=== PATIENT | female | born 1990 | race Caucasian/White ===

== ENCOUNTER 2023-12-28 00:36 | Emergency (ER) | payer OTHER, SELFPAY ==
[2023-12-28 00:41] VITALS: BP 151/66; PULSE 99; RESP 20; TEMP 37.1; O2SAT 99; BMI 30.1
--- NOTE | 2023-12-28 01:08 | ED.PREGNANC1 ---
HPI - General Chief complaint: Vaginal Bleeding Stated complaint: 20 WEEKS < BLEEDING Time Seen by Provider: 12/28/23 00:45 Source: patient Mode of arrival: walk-in Limitations: no limitations History of Present Illness HPI Narrative: 18 weeks . [id number]. States bleeding heavily tonight. Denies family history of miscarriages. No abdominal cramping. No light headiness. No urinary symptoms MD Complaint: Reports vaginal bleeding Related Data Home Medications Medication Instructions Recorded Confirmed aspirin 81 mg capsule 81 mg PO DAILY 12/28/23 12/28/23 methimazole 5 mg tablet 5 mg PO DAILY 12/28/23 12/28/23 ondansetron 8 mg disintegrating 4 mg PO Q8H 12/28/23 12/28/23 tablet Allergies Allergy/AdvReac Type Severity Reaction Status Date / Time No Known Drug Allergies Allergy Verified 12/28/23 00:46 Review of Systems ROS Status of ROS 10 or more systems reviewed and unremarkable except as noted in history and below [facility], [facility] PFS Social History Smoking status: Never smoker Exam Constitutional Vital Signs, click to edit/add: Last Vital Signs Temp 98.7 F 12/28/23 00:41 Pulse 100 H 12/28/23 01:44 Resp 18 12/28/23 01:44 BP 129/81 12/28/23 01:44 Pulse Ox 100 12/28/23 01:44 O2 Del Method Room Air 12/28/23 00:41 Common normals: no apparent distress, average body habitus, oriented x3, no limitations, healthy appearing, alert and well nourished [facility] Common normals: normocephalic and head/scalp atraumatic Eye Common normals: PERRL, EOMs intact bilaterally and conjunctivae normal Respiratory Common normals: normal respiratory effort, no retractions and no use of accessory muscles Cardio Common normals: regular rate, regular rhythm, S1 normal heart sound and S2 normal heart sound GI Common normals: Normal to inspection, nondistended, normoactive bowel sounds present, soft to palpation and non-tender Extremity Common normals: normal to inspection and full ROM Neuro Common normals: oriented x3, CN's II-XII intact bilaterally, moves all extremities and no focal motor deficits Psych Appearance: grossly normal Course Vital Signs Vital signs: Vital Signs Temperature 98.7 F 12/28/23 00:41 Pulse Rate 99 H 12/28/23 00:41 Respiratory Rate 20 12/28/23 00:41 Blood Pressure 151/66 H 12/28/23 00:41 Pulse Oximetry 99 12/28/23 00:41 Oxygen Delivery Method Room Air 12/28/23 00:41 Temperature 98.7 F 12/28/23 00:41 Pulse Rate 100 H 12/28/23 01:44 Respiratory Rate 18 12/28/23 01:44 Blood Pressure 129/81 12/28/23 01:44 Pulse Oximetry 100 12/28/23 01:44 Oxygen Delivery Method Room Air 12/28/23 00:41 MDM - OB/Uterine Contractions MDM Narrative Medical decision making narrative: patient is [id number] 18 weeks who presents with vaginal bleeding. Her quant is positive but appears low for 18 weeks. H/H WNL. pelvic exam with small amount of blood in the vault. No adnexa or cervical tenderness. Patient describes past ultrasound that demonstrated IUP. patient informed of possible miscarriage. will have her return for ultrasound as one is not available at 2:00AM FHT [id number] Discussed with Nurse practitioner Taras who would like patient to receive Rho injection which was ordered and given Lab Data Labs: Lab Results 12/28/23 12/28/23 Range/Units 00:50 01:10 WBC 8.9 (4.0-11.0) 10^3/uL RBC 4.21 (4.20-5.40) 10^6/uL Hgb 12.9 (12.0-16.0) g/dL Hct 37.8 (36.0-48.0) % MCV 89.8 (81.0-99.0) fL MCH 30.6 (26.7-34.0) pg MCHC 34.1 (29.9-35.2) g/dL RDW 12.2 (11.0-15.0) % Plt Count 233 (150-450) 10^3/uL MPV 11.4 (9.5-13.5) fL Neut % (Auto) 55.6 (43.0-75.0) % Lymph % (Auto) 39.0 (20.5-60.0) % [place] % (Auto) 4.9 (1.7-12.0) % Eos % (Auto) 0.0 L (0.9-7.0) % Baso % (Auto) 0.2 (0.2-2.0) % Neut # (Auto) 5.0 (1.4-6.5) 10^3/uL Lymph # (Auto) 3.5 (1.2-3.8) 10^3/uL [place] # (Auto) 0.4 (0.3-0.8) 10^3/uL Eos # (Auto) 0.0 (0.0-0.7) 10^3/uL Baso # (Auto) 0.0 (0.0-0.1) 10^3/uL Abs Immat Gran (auto) 0.03 (0.00-0.03) 10^3/uL Imm/Tot Granulo (auto) 0.3 (0.0-0.5) % Sodium 140 (136-145) mmol/L Potassium 3.4 L (3.5-5.1) mmol/L Chloride 104 (98-107) mmol/L Carbon Dioxide 26.3 (21.0-32.0) mmol/L Anion Gap 13.1 BUN 12.0 (7.0-18.0) mg/dL Creatinine 0.66 (0.55-1.02) mg/dL Est GFR ( Amer) >60 (>=60) Est GFR (Non-Af Amer) >60 (>=60) BUN/Creatinine Ratio 18.2 Glucose 90 (74-106) mg/dL Calcium 9.0 (8.5-10.1) mg/dL HCG, Quant 14676 mIU/mL Urine Color Lt. red (YELLOW) Urine Clarity Clear (CLEAR) Urine pH 6.0 (5.0-9.0) Ur Specific [place] 1.020 (1.005-1.025) Urine Protein Trace (NEG/TRACE) mg/dL Urine Glucose (UA) Negative (NEGATIVE) mg/dL Urine Ketones Negative (NEGATIVE) mg/dL Urine Occult Blood Large A (NEGATIVE) Urine Nitrite Negative (NEGATIVE) Urine Bilirubin Negative (NEGATIVE) Urine Urobilinogen 0.2 (0.2-1.0) EU/dL Ur Leukocyte Esterase Negative (NEGATIVE) Urine RBC 50-75 A (0-2) #/HPF Urine WBC None seen (NONE SEEN) #/HPF Ur Squamous Epith Cells Rare (NONE/RARE) #/LPF Urine Crystals None seen (None Seen) #/HPF Urine Bacteria Trace A (NONE SEEN) #/HPF Urine Casts None seen (NONE SEEN) #/LPF Urine Mucus None seen (NONE SEEN) Ur Culture Indicated? No Discharge Plan Discharge Chief Complaint: Vaginal Bleeding Clinical Impression: Threatened Patient Disposition: Home, Self-Care Prescriptions / Home Meds: No Action aspirin 81 mg capsule 81 mg PO DAILY ondansetron 8 mg tablet,disintegrating 4 mg PO Q8H methimazole 5 mg tablet 5 mg PO DAILY Rx Instructions: 4x a week. Instructions: Threatened Miscarriage (ED) Additional Instructions: return later today for ultrasound or you can see your academic administrator Stand Alone Forms: Portal Instructions Referrals: Physician,Non-Staff, MD [Primary Care Provider] - 1 week
[2023-12-28 01:17] LABS: Bilirubin Urine NEGATIVE (NEGATIVE); Blood Urine LARGE (NEGATIVE); Clarity Urine CLEAR (CLEAR); Color Urine LT. RED (YELLOW); Glucose Urine UA NEGATIVE (NEGATIVE); Ketones Urine NEGATIVE (NEGATIVE); Leukocyte Esterase Urine NEGATIVE (NEGATIVE); Nitrite Urine NEGATIVE (NEGATIVE); Protein Urine TRACE mg/dL (NEG/TRACE); Urobilinogen Urine 0.2 EU/dL (0.2-1.0)
[2023-12-28 01:19] LABS: Basophils Percent Auto 0.2 % (0.2-2.0); Hematocrit 37.8 % (36.0-48.0); Hemoglobin 12.9 g/dL (12.0-16.0); Immature Granulocytes Abs Auto 0.03 10^3/uL (0.00-0.03); Immature Granulocytes Pct Auto 0.3 % (0.0-0.5); Lymphocytes Absolute Auto 3.5 10^3/uL (1.2-3.8); Mean Corpuscular HGB Conc 34.1 g/dL (29.9-35.2); Mean Corpuscular Hemoglobin 30.6 pg (26.7-34.0); Mean Corpuscular Volume 89.8 fL (81.0-99.0); Mean Platelet Volume 11.4 fL (9.5-13.5); Monocytes Absolute Auto 0.4 10^3/uL (0.3-0.8); Monocytes Percent Auto 4.9 % (1.7-12.0); Neutrophils Percent Auto 55.6 % (43.0-75.0); Platelet Count 233 10^3/uL (150-450); Red Blood Count 4.21 10^6/uL (4.20-5.40); Red Cell Distribution Width 12.2 % (11.0-15.0); White Blood Count 8.9 10^3/uL (4.0-11.0)
[2023-12-28 01:21] LABS: Urine Microscopic Indicated YES
--- NOTE | 2023-12-28 01:23 | PC.NURSE ---
Patient states that she woke up and went to bathroom and had a gush of bright red blood in her pants without clots, approx grapefruit sized stain. Patient states that she is 18wks . has not had any bleeding or abdominal cramping. patient denies pain. This is her first . sees ASSISTANT SCIENTIST Radha. denies any dizziness, or changes in vision. patient ambulated with steady gait. given depends with pad to track blood loss. iv placed and blood sent
[2023-12-28 01:24] LABS: Bacteria Urine TRACE #/HPF (NONE SEEN); Cast Seen? NONE SEEN #/LPF (NONE SEEN); Crystals Seen? None Seen #/HPF (None Seen); Mucus Urine NONE SEEN (NONE SEEN); RBC Urine 50-75 #/HPF (0-2); Squamous Epithelial Cell Urine RARE #/LPF (NONE/RARE); Urine Culture Indicated NO; WBC Urine NONE SEEN #/HPF (NONE SEEN)
[2023-12-28 01:44] VITALS: BP 129/81; PULSE 100; RESP 18; O2SAT 100
[2023-12-28 01:52] LABS: Anion Gap 13.1; BUN Creatinine Ratio 18.2; Carbon Dioxide 26.3 mmol/L (21.0-32.0); Chloride 104 mmol/L (98-107); Estimated GFR (African America >60 (>=60); Estimated GFR (Non-African Ame >60 (>=60); Glucose 90 mg/dL (74-106); HCG Quantitative 11411 mIU/mL; Potassium 3.4 mmol/L (3.5-5.1); Sodium 140 mmol/L (136-145)
[2023-12-28] MEDS: RHO(D) IMMUNE GLOBULIN 1,500 UNIT SYRINGE 1500 UNIT IM (03:21)
== END 2023-12-28 03:33 | disposition home or self-care (01) ==
PROVIDERS: Emergency Provider Internal Medicine; PCP Family Medicine
DX: O20.0 Threatened abortion (principal); Z3A.18 18 weeks gestation of pregnancy; Z79.82 Long term (current) use of aspirin; Z79.899 Other long term (current) drug therapy
CPT/HCPCS: 36415; 80048; 81001; 84702; 85025; 96372; 99284; J2790

== ENCOUNTER 2024-03-06 07:34 | Outpatient (RCR) | payer OTHER, SELFPAY ==
[2024-03-06] MEDS: RHO(D) IMMUNE GLOBULIN 1,500 UNIT SYRINGE 1500 UNIT IM (08:03)
[2024-03-06 08:15] VITALS: BP 127/87; PULSE 88; TEMP 36.4; O2SAT 98
--- NOTE | 2024-03-06 08:17 | PC.NURSE ---
0755: Pt. to [facility] amb. for Rhogam injection. Seated in recliner. VSS. Relays receiving injection in 12/2023 for bleeding. Denies questions about drug. Pt. medicated with Rhophylac 1500 IU IM to right dorsal gluteal area. No bleeding to site. Bandaid placed prophylactically. Pt. tolerated without c/o. 0809: Pt without s&s of adverse reaction. D/c'd amb to home.
== END 2024-03-21 23:59 | disposition home or self-care (01) ==
LOC: INF 07:34
PROVIDERS: PCP Family Medicine; Visit Provider Midwife
DX: O26.893 Other specified pregnancy related conditions, third trimester (principal); Z67.91 Unspecified blood type, Rh negative
CPT/HCPCS: 36415; 86850; 86900; 86901; 96372; J2790

== ENCOUNTER 2024-05-19 00:01 | Inpatient (IN) | payer OTHER, MEDICAID, SELFPAY ==
[2024-05-19] VITALS (30 sets, daily range): BP systolic 102–138; BP diastolic 57–83; PULSE 16–131; TEMP 35.9–37.5
--- OUTSIDE RECORDS SUMMARY | 2024-05-19 00:03 | XMS_ITS ---
Patient Summarization (C-CDA 2.1 CCD) Created on: May 19, 2024 BEBE PENDLETON : 1990 Sex: Female Author Organization Sample organization Care Team Providers Care Collection Systems Foreman Name Role Phone GEORGE LINDA Unavailable Unavailable PRECIOUSJAYME MI Unavailable Unavailabl e Unavailable Unavailable Unavailable VEE, CARL A Admitting Unavailable VEE, CARL Lee Attending Unavailable VEE, CARL A Primary Care Unavailable VEE, CARL A Consulting Unavailable VEE, CARL Lee Admitting Unavailable VEE, CARL Lee Attending Unavailable VEE, CARL A Primary Care Unavailable VEE, CARL A Consulting Unavailable Catrachito GRIFFIN Attending Unavailable GRACE, CHENGXI Referring Unavailable GRACE, CHENGXI Primary Care Unavailable DIANA MEJIAS Attending Unavailable GRACE, CHENGXI Referring Unavailable GRACE, [facility] Primary Care Unavailable Unavailable Primary Care Provider Unavailabl e Unallocated, Noms Provider Primary Care Provider SAXENA, THOMAS Referring Unavailable MOUSSA, HIND NADIM Attending Unavailable MOUSSA, HIND NADIM Referring Unavailable FLORO, RAKESH Referring Unavailable SAXENA, THOMAS Attending Unavailable FLORO, RAKESH Referring Unavailable SAXENA, THOMAS Attending Unavailable FLORO, RAKESH Referring Unavailable FREEDOM SANTANA Attending Unavailable FLORO, RAKESH Referring Unavailable FLORO, RAKESH Jon Attending Unavailable FLORO, RAKESH Jon Attending Unavailable FLORO, RAKESH L Attending Unavailable FLORO, RAKESH L Referring Unavailable FLORO, RAKESH L Attending Unavailable FLORO, RAKESH L Attending Unavailable FLORO, RAKESH L Attending Unavailable FLORO, RAKESH L Attending Unavailable FLORO, RAKESH L Referring Unavailable FLORO, RAKESH L Attending Unavailable FLORO, RAKESH L Referring Unavailable FLORO, RAKESH L Attending Unavailable FLORO, RAKESH L Referring Unavailable FLORO, RAKESH L Referring Unavailable FLORO, RAKESH L Attending Unavailable FLORO, RAKESH L Attending Unavailable FLORO, RAKESH L Referring Unavailable FLORO, RAKESH Jon Attending Unavailable FLORO, RAKESH L Referring Unavailable FLORO, RAKESH L Attending Unavailable FLORO, RAKESH L Referring Unavailable FLORO, RAKESH L Attending Unavailable Encounters Encounter Date Encounter Type Care Provider Facility Start: 05-16-2024 ambulatory RAKESH L FLORO Not Nohemi ilable Start: 05-12-2024 End: 05-12-2024 ambulatory RAKESH L FLORO Not Available Start: 05-09-2024 End: 05-09-2024 ambulatory RAKESH L FLORO Not Available Start: 05-05-2024 End: 05-05-2024 ambulatory RAKESH L FLORO Not Available Start: 05-03-2024 End: 05-03-2024 ambulatory RAKESH L FLORO Not Available Start: 04-28-2024 End: 04-28-2024 ambulatory RAKESH L FLORO Not Available Start: 04-25-2024 End: 04-25-2024 ambulatory RAKESH L FLORO Not Available Start: 04-21-2024 End: 04-21-2024 ambulatory RAKESH L FLORO Not Available Start: 04-18-2024 End: 04-18-2024 ambulatory RAKESH L FLORO Not Available Start: 04-18-2024 End: 04-18-2024 ambulatory RAKESH L FLORO Not Available Start: 04-14-2024 End: 04-14-2024 ambulatory RAKESH L FLORO Not Available Start: 04-11-2024 End: 04-11-2024 ambulatory RAKESH L FLORO Not Available Start: 04-07-2024 End: 04-07-2024 ambulatory RAKESH L FLORO Not Available Start: 04-04-2024 End: 04-04-2024 ambulatory RAKESH L FLORO Not Available Start: 04-03-2024 End: 04-04-2024 ambulatory [facility] Start: 03-30-2024 End: 03-30-2024 ambulatory RAKESH L FLORO Not Available Start: 03-09-2024 End: 03-09-2024 ambulatory [facility] Start: 02-17-2024 End: 02-17-2024 ambulatory RAKESH L FLORO Not Available Start: 02-09-2024 End: 02-09-2024 Office outpatient visit 25 minutes Vinny Adorno MD Work Phone: [facility] [place] Comment on above: Subchorionic hematom a in second trimester, single or unspecified fetus (Primary Dx); resulting from assisted reproductive technology in second trimester; Low-lying placenta; Hyperthyroidism affecting , antepartum; 24 weeks gestation of Start: 02-09-2024 End: 02-09-2024 Orders Only Pelon Coon RN [facility] Comment on above: Subchorionic hematom a in second trimester, single or unspecified fetus (Primary Dx); resulting from assisted reproductive technology in second trimester; Low-lying placenta; Hyperthyroidism affecting , antepartum; 24 weeks gestation of Start: 01-20-2024 End: 01-20-2024 ambulatory RAKEHS L FLORO Not Available Start: 01-10-2024 End: 01-10-2024 Office consultation new/estab patient 60 min Thomas Saxena MD Work Phone: [facility] [place] Comment on above: 20 weeks gestation o f (Primary Dx); Hyperthyroidism affecting , antepartum; Subchorionic hematoma in second trimester, single or unspecified fetus; resulting from assisted reproductive technology in second trimester Start: 01-10-2024 End: 01-10-2024 Orders Only Pelon Coon RN [facility] Comment on above: Hyperthyroidism affe cting , antepartum (Primary Dx); Subchorionic hematoma in second trimester, single or unspecified fetus; resulting from assisted reproductive technology in second trimester Start: 12-29-2023 Bamboo flowsheet Rakesh L Jarod ro CNM Work Phone: [facility] Start: 12-29-2023 Bamboo flowsheet Rakesh L Jarod ro CNM Work Phone: [facility] Start: 12-29-2023 End: 12-29-2023 ambulatory RAKESH L FLORO Not Available Start: 12-23-2023 End: 12-23-2023 Subsequent care visit Rakesh L Floro CNM Work Phone: [facility] Comment on above: Encounter for prenat al care of first , second trimester (Primary Dx); Nausea and vomiting in ; Other constipation Start: 12-23-2023 End: 12-23-2023 ambulatory RAKESH L FLORO Not Available Start: 12-23-2023 Bamboo flowsheet Rakesh L Jarod ro CNM Work Phone: [facility] Start: 12-23-2023 Bamboo flowsheet Rakesh L Jarod ro CNM Work Phone: [facility] Start: 12-03-2023 Chart abstracting Thomas Saxena MD Work Phone: [facility] [place] Start: 11-24-2023 End: 11-24-2023 ambulatory RAKESH L FLORO Not Available Start: 10-26-2023 End: 10-26-2023 ambulatory RAKESH L FLORO Not Available Start: 10-20-2023 ambulatory Catrachito GRIFFIN [facility] Start: 10-06-2023 ambulatory DIANA [facility] Start: 07-16-2020 End: 07-17-2020 Patient encounter procedure CARL VEE Facility:[facility] Start: 06-13-2020 End: 06-13-2020 Telemedicine consultation with patient Kassandra Klein Work Phone: [facility] Work Phone: Start: 05-06-2020 Encounter for genera l adult medical examination [facility] Start: 05-03-2020 End: 05-04-2020 Patient encounter procedure CARL VEE Facility:[facility] Start: 07-15-2017 End: 07-16-2017 Ambulatory GEORGE [facility] Encounter for genera l adult medical examination without abnormal findings [facility] Medications Current Medications Medication Drug Class(es) Dates Sig (Normalized) Sig (Original) Aspirin (9 sources) Platelet Aggregation Inhibitor, Nonsteroidal Anti-inflammatory Drug Start: 08-19-2023 BABY ASPIRIN PO BABY ASPIRIN ORA L Take by mouth. 0 Active levothyroxine sodium 0.025 mg oral tablet (1 source) l-Thyroxine Start: 06-13-2020 Synthroid 25 MCG Oral Tablet 06/13/2020 Provider: methIMAzole 5 mg oral tablet (4 sources) Thyroid Hormone Synthesis Inhibitor take 1 tablet by mouth four times weekly methIMAzole (TAPAZOLE) 5 mg tablet Take 1 tablet (5 mg total) by mouth 4 (four) times a week. 0 Active ondansetron 8 mg disintegrating oral tablet (7 sources) Serotonin-3 Receptor Antagonist Start: 11-24-2023 End: 12-24-2023 take 1 tablet by mouth every eight hours for nausea ondansetron ODT (Zofran-ODT) 8 MG disintegrating tablet Indications: Nausea/vomiting in Take 1 tablet (8 mg) by mouth every 8 (eight) hours if needed for nausea or vomiting 30 tablet 1 11/24/2023 12/24/2023 Active take 1 tablet by [place] th every eight hours as needed for nausea and vomiting ondansetron (ZOFRAN) 4 mg tablet Take 1 tablet (4 mg total) by mouth every 8 (eight) hours as needed for nausea or vomiting. 0 Active Vit-Fe Fumarate-FA ( Vitamin) 27-0.8 MG tablet (4 sources) Vit-Fe Fumarate-FA ( Vitamin) 27-0.8 MG tablet Take by mouth 0 Active promethazine hydrochloride 12.5 mg oral tablet (9 sources) Phenothiazine Start: 10-20-2023 take 1 tablet by mouth every six hours as needed for nausea promethazine (Phenergan) 12.5 MG tablet Take 12.5 mg by mouth every 6 (six) hours if needed for nausea 0 10/20/2023 Active take 12.5 mg rectal route every six hours as needed for nausea and vomiting promethazine (PHENERGAN) 12.5 mg suppository Insert 1 suppository (12.5 mg total) into the rectum every 6 (six) hours as needed for nausea or vomiting. 0 Active propylthiouracil 50 mg oral tablet (9 sources) Thyroid Hormone Synthesis Inhibitor Start: 09-15-2023 take 1 tablet by mouth in the morning, then take 1 tablet by mouth in the evening, then take 1 tablet by mouth at bedtime, then take 2 tablets by mouth four times weekly propylthiouracil (PTU) 50 MG tablet Take 50 mg by mouth in the morning and 50 mg in the evening and 50 mg before bedtime. 100mg 4 times a week . 0 09/15/2023 Active Payers Date Payer Category Payer Medicaid [id number] 2022 Unknown [id number] 2016 Unknown [id number] 1990 Unknown [id number] 2.16.84 0.1.322300.3.579.2.593 1990 Unknown [id number] 2.16.84 0.1.875163.3.579.2.593 1990 Unknown [id number] 2.16.84 0.1.631427.3.579.2.1279 1990 Unknown [id number] 2.16.84 0.1.178093.3.579.2.1279 1990 Unknown [id number] 2.16.8 40.1.241416.3.579.2.1286 1990 Unknown [id number] 2.16.8 40.1.128425.3.579.2.6 1990 Unknown [id number] 2.16.8 40.1.795444.3.579.2.1286 1990 Unknown [id number] 2.16.8 40.1.438533.3.579.2.1286 1990 Unknown [id number] 2.16.8 40.1.007893.3.579.2.1286 1992 Unknown [id number] 2.16.8 40.1.979897.3.579.2.6 1990 Unknown [id number] 2.16.8 40.1.810173.3.579.2.6 1990 Unknown [id number] 2.16.84 0.1.437195.3.579.2.1259 1990 Unknown [id number] 2.16.84 0.1.327207.3.579.2.1259 1990 Unknown [id number] 2.16.84 0.1.912167.3.579.2.9 1992 Unknown [id number] 2.16.84 0.1.210659.3.579.2.9 1992 Unknown [id number] 2.16.84 0.1.984261.3.579.2.1258 1992 Unknown [id number] 2.16.84 0.1.597476.3.579.2.1258 1992 Unknown [id number] 2.16.84 0.1.473504.3.579.2.1258 1992 Unknown [id number] 2.16.84 0.1.036344.3.579.2.1258 1992 Unknown [id number] 2.16.84 0.1.350377.3.579.2.1258 1992 Unknown [id number] 2.16.84 0.1.261977.3.579.2.1258 1992 Unknown [id number] 2.16.84 0.1.044098.3.579.2.1258 1992 Unknown [id number] 2.16.84 0.1.407061.3.579.2.1258 1992 Unknown [id number] 2.16.84 0.1.611491.3.579.2.1258 1992 Unknown [id number] 2.16.84 0.1.547700.3.579.2.1258 1992 Unknown [id number] 2.16.84 0.1.788748.3.579.2.1258 1992 Unknown [id number] 2.16.84 0.1.546615.3.579.2.1258 1992 Unknown [id number] 2.16.84 0.1.335948.3.579.2.1258 1992 Unknown [id number] 2.16.84 0.1.078274.3.579.2.1259 1992 Unknown [id number] 2.16.84 0.1.863215.3.579.2.1259 1992 Unknown [id number] 2.16.84 0.1.003893.3.579.2.1259 1992 Unknown [id number] 2.16.840 .1.581120.3.579.2.1259 1992 Unknown [id number] 2.16.840 .1.533196.3.579.2.1259 1959 Unknown [id number] 2. 16.840.1.956253.3.140.1.51736.5.10.6.3 Plan of Treatment Date Care Activity Detail Author Start: 08-31-2026 DTaP,Tdap and Td Vaccines (2 - Td or Tdap) DTaP,Tdap and Td Vaccines (2 - Td or Tdap) [facility] Start: 02-08-2025 Tobacco Screening Tobacco Screening [facility] Start: 01-10-2025 Adult BMI Screening Adult BMI Screen ing [facility] Start: 04-09-2024 End: 01-10-2025 US MFM with or without consult US MFM with or without consult Imaging Routine Hyperthyroidism affecting , antepartum Subchorionic hematoma in second trimester, single or unspecified fetus resulting from assisted reproductive technology in second trimester Expected: 04/09/2024 (Approximate), Expires: 01/10/2025 [facility] Comment on above: Expected: 04/09/2024 (Approximate), Expires: 01/10/2025 Start: 04-03-2024 End: 04-03-2024 Patient encounter procedure [facility] Start: 03-11-2024 End: 02-08-2025 US MFM with or without consult US MFM with or without consult Imaging Routine Subchorionic hematoma in second trimester, single or unspecified fetus resulting from assisted reproductive technology in second trimester Low-lying placenta Hyperthyroidism affecting , antepartum 24 weeks gestation of Expected: 03/11/2024 (Approximate), Expires: 02/08/2025 [facility] Work Phone: Comment on above: Expected: 03/11/2024 (Approximate), Expires: 02/08/2025 Start: 03-09-2024 End: 03-09-2024 Patient encounter procedure 03/09/2024 2:15 PM EDT Appointment [facility] [address] [place] [address] [facility] Start: 02-09-2024 End: 02-09-2024 Patient encounter procedure [facility] Start: 02-08-2024 End: 01-10-2025 US MFM with or without consult US MFM with or without consult Imaging Routine Hyperthyroidism affecting , antepartum Subchorionic hematoma in second trimester, single or unspecified fetus resulting from assisted reproductive technology in second trimester Expected: 02/08/2024 (Approximate), Expires: 01/10/2025 [facility] Work Phone: Comment on above: Expected: 02/08/2024 (Approximate), Expires: 01/10/2025 Start: 01-20-2024 End: 01-20-2024 Patient encounter procedure 01/20/2024 3:30 PM EST Routine [facility] [address] [place] [id number] Rakesh Nguyen, [address] [address] [facility] Start: 01-10-2024 End: 01-10-2024 Patient encounter procedure [facility] Start: 12-30-2023 End: 12-30-2023 Patient encounter procedure 12/30/2023 1:00 PM EST Office Visit [facility] [address] [place] [address] Rakesh Nguyen, [address] [address] [facility] Start: 12-29-2023 End: 12-29-2023 Patient encounter procedure 12/29/2023 10:30 AM EST Routine [facility] [address] [facility] [place] [address] Rakesh Nguyen, CNM [address] [place] [address] Arrived [facility] Comment on above: Arrived Start: 12-23-2023 End: 12-23-2023 Patient encounter procedure 12/23/2023 3:30 PM EST Routine [facility] [address] [place] [address] Rakesh Nguyen, CN [address] [place], [place] [id number] Arrived [facility] Comment on above: Arrived Start: 07-23-2023 Influenza vaccination Influenza Vacc ine [facility] Start: 07-15-2020 Screening for malignant neoplasm of cervix Pap Smear [facility] Start: 06-20-2020 SARS-CoV-2, [facility] Work Phone: Start: 06-13-[address] COVID Drive up Testing [facility] Work Phone: Start: 2013 Screening for malignant neoplasm of cervix Pap Smear [facility] Start: 2011 DTaP,Tdap and Td Vaccines (1 - Tdap) DTaP,Tdap and Td Vaccines (1 - Tdap) [facility] Start: 2010 Adult BMI Follow Up Plan Adult BMI Follow Up Plan [facility] Start: 2010 Adult BMI Screening Adult BMI Screen ing [facility] Start: 2004 Depression Screening Depression Scre ening [facility] Start: 2004 Tobacco Screening Tobacco Screening [facility] Problems Active Problems Problem Classification Problem Date Documented Da te Episodic/Chronic Hemorrhage during ; abruptio placenta; placenta previa (7 sources) Low lying placenta; Translations: [Low lying placenta NOS or without hemorrhage, unspecified trimester] Onset: 02-09-2024 02-09-2024 Episodic Immunizations and screening for infectious disease (1 source) Exposure to communicable disease; Translations: [Exposure To Contagious Viral Disease] Onset: 06-13-2020 Episodic Other complications of (2 sources) Nausea and vomiting; Translations: [Vomiting of , unspecified] 12-23-2023 Episodic Other complications of (4 sources) Hyperthyroidism in ; Translations: [Endocrine, nutritional and metabolic diseases complicating , unspecified trimester] 01-10-2024 Episodic Other complications of (6 sources) Supervision of resulting from assisted reproductive technology, second trimester; Translations: [ resulting from assisted reproductive technology] Onset: 02-09-2024 01-10-2024 Episodic Other complications of (2 sources) Endocrine, nutritional and metabolic diseases complicating , unspecified trimester; Translations: [Endocrine, nutritional and metabolic diseases complicating , unspecified trimester] Onset: 02-09-2024 Episodic Other complications of (2 sources) Supervision of resulting from assisted reproductive technology, unspecified trimester; Translations: [Supervision of resulting from assisted reproductive technology, unspecified trimester] Onset: 01-10-2024 Episodic Other complications of (1 source) Endocrine, nutritional and metabolic diseases complicating , third trimester; Translations: [Endocrine, nutritional and metabolic diseases complicating , third trimester] Onset: 04-03-2024 Episodic Other gastrointestinal disorders (2 sources) Constipation; Translations: [Other constipation] 12-23-2023 Episodic Other and delivery including normal (2 sources) Second trimester ; Translations: [Encounter for supervision of normal first , second trimester] 12-23-2023 Episodic Polyhydramnios and other problems of amniotic cavity (7 sources) Subchorionic hematoma; Translations: [Other specified disorders of amniotic fluid and membranes, second trimester, not applicable or unspecified] Onset: 02-09-2024 01-10-2024 Episodic Residual codes; unclassified (1 source) Gestation period, 20 weeks; Translations: [20 weeks gestation of ] 01-10-2024 Episodic Residual codes; unclassified (2 sources) Gestation period, 24 weeks; Translations: [24 weeks gestation of ] 02-09-2024 Episodic Residual codes; unclassified (1 source) 24 weeks gestation of ; Translations: [24 weeks gestation of ] Onset: 02-09-2024 Episodic Residual codes; unclassified (1 source) 20 weeks gestation of ; Translations: [20 weeks gestation of ] Onset: 01-10-2024 Episodic Thyroid disorders (8 sources) Hypothyroidism, unspecified; Translations: [Thyrotoxicosis, unspecified without thyrotoxic crisis or storm] Onset: 07-16-2020 Chronic Unclassified (7 sources) Encounter for screening for malignant neoplasm of cervix; Translations: [Encounter for other specified screening] Onset: 07-15-2017 Episodic Unclassified (1 source) Fertility Preservation Onset: 02-09-2024 Unclassified (1 source) SUBCHORIONIC HEMATOMA Onset: 02-09-2024 Unclassified (1 source) IVF Onset: 04-03-2024 Past or Other Problems Problem Classification Problem Date Documented Date Episodic/Chronic Medical examination/evaluatio n (2 sources) Encounter for gynecological examination (general) (routine) without abnormal findings; Translations: [Encounter for gynecological examination (general) (routine) without abnormal findings] Onset: 07-15-2017 Episodic Unclassified (1 source) OB scan #2 Onset: 10-20-2023 Procedures Date Procedure Procedure Detail Performing Clinician Start: 10-26-2023 Antibody screen Thomas godinez MD Work Phone: Start: 10-26-2023 HIV 1&2 AB/AG SCREEN (P24 AG) Not In System Ref Prov Start: 10-26-2023 Iaad ia hepatitis b surface antigen Not In System Ref Prov Start: 10-26-2023 Syphilis test non-treponemal antibody qual Not In System Ref Prov Start: 10-26-2023 TYPE AND SCREEN Not In System Ref Prov Start: 10-21-2023 US OFFICE Not In Sys tem Ref Prov Start: 10-06-2023 US OFFICE Not In Sys tem Ref Prov Start: 07-15-2017 Cytopathology proced ure, preparation of smear, genital source GEORGE ALEXEI Start: 07-15-2017 Microscopic observat ion [Identifier] in Cervix by Cyto stain Thomas Saxena MD Work Phone: Results Test Name Value Interpretation Reference Range Facility US BIOPHYSICAL PROFILE WO NON STRESS TESTINGon 05-12-2024 US BIOPHYSICAL PROFILE WO NON STRESS TESTING EXAM: US BIOPHYSICAL PROFILE WO NON STRESS TESTING HISTORY: Graves disease. biophysical profile. TECHNIQUE: real-time ultrasonographic evaluation with color-flow Doppler imaging and Doppler spectral waveform analysis provided. COMPARISON: 05/05/2024 FINDINGS: Single live intrauterine with heart rate of 138 beats per minute by M-mode analysis. Cephalic presentation. The placenta is located in the fundus, grade 1. biophysical profile: breathing: Score 2. tone: Score 2. Gross body movement: Score 2. MAGDALENO: Score 2. Total score: 8/8. MAGDALENO: 16 cm, 67th percentile. IMPRESSION: 1. Single live intrauterine with heart rate of 138 beats per minute. 2. biophysical profile: Total score: 8/8. Electronically Signed:Electronically signed by NIKKO ORTEZ MD at 15-May-2024 08:44:21 AM [facility] Normal Not Available US BIOPHYSICAL PROFILE WO NON STRESS TESTINGon 05-05-2024 US BIOPHYSICAL PROFILE WO NON STRESS TESTING FINDINGS: Breathing Movements 2 Gross Body Movements 2 Tone 2 Qualitative amniotic fluid volume 2 A single, viable intrauterine is present. Cephalic presentation. heart rate 143 bpm. MAGDALENO 19 cm. The placenta is fundal, Grade I, not associated with the cervical os. IMPRESSION: Normal biophysical profile 06/29 TRANSCRIBED BY: ELECTRONICALLY SIGNED BY: Bal Garcia MD Normal Not Available US BIOPHYSICAL PROFILE WO NON STRESS TESTINGon 04-28-2024 US BIOPHYSICAL PROFILE WO NON STRESS TESTING FINDINGS: Breathing Movements 2 Gross Body Movements 2 Tone 2 Qualitative amniotic fluid volume 2 A single, viable intrauterine is present. The placenta is posterior fundal, Grade 1. MAGDALENO 15.0 cm. Cephalic presentation. heart rate 145 bpm. IMPRESSION: Normal biophysical profile 06/29. TRANSCRIBED BY: ELECTRONICALLY SIGNED BY: Bal Garcia MD Normal Not Available US OB FOLLOW UP TRANSABDOMIN AL APPROACHon 04-21-2024 US OB FOLLOW UP TRANSABDOMINAL APPROACH FINDINGS: Comparison is made with prior examination December 29, 2023 A single, live intrauterine is present with normal cardiac rate of 153 beats per minute. Normal activity and amniotic fluid volume. Amniotic fluid index is 14 cm. Morphology is grossly normal. The cervix is not seen due to positioning. The placenta is fundal, not associated with the cervical os. The current sonographic age is 35 weeks and 1 day, based on the following measurements: BPD 8.8 cm (35 weeks, 3 days) Head Circumference 31.3 cm (35 weeks, 0 days) Abdominal Circumference 31.1 cm (35 weeks, 0 days) Femur Length 6.8 cm (35 weeks, 0 days) Presentation Cephalic Placenta Fundal Grade I-II Weight (g) by Percentile 48.8 % * These measurements result in an estimated date of delivery of May 25, 2024. The current estimated weight is 2585 grams (5 pounds, 11 ounces). IMPRESSION: 1. Single, live intrauterine , current sonographic age of 35 weeks and 1 day, with an estimated date of delivery of May 25, 2024 (prior PORTIA May 27, 2024). 2. Estimated weight 2585 grams (5 pounds, 11 ounces) * Estimated Weight (g) by Percentile is based upon an accurate estimated age based on last menstrual period. TRANSCRIBED BY: ELECTRONICALLY SIGNED BY: Bal Garcia MD Normal Not Available US BIOPHYSICAL PROFILE WITH NON STRESS TESTon 04-18-2024 US BIOPHYSICAL PROFILE WITH NON STRESS TEST FINDINGS: Breathing Movements 2 Gross Body Movements 2 Tone 2 Qualitative amniotic fluid volume 2 A single, viable intrauterine is present. Cephalic presentation. heart rate 151 bpm. MAGDALENO 17 cm. Cervix not seen due to positioning. The placenta is fundal, Grade I IMPRESSION: 1. Normal biophysical profile 06/29 2. MAGDALENO 17 cm, minimal change from April 07, 2024, however TRANSCRIBED BY: ELECTRONICALLY SIGNED BY: Bal Garcia MD Normal Not Available US BIOPHYSICAL PROFILE WO NON STRESS TESTINGon 04-14-2024 US BIOPHYSICAL PROFILE WO NON STRESS TESTING FINDINGS: Breathing Movements 2 Gross Body Movements 2 Tone 2 Qualitative amniotic fluid volume 2 A single, viable intrauterine is present. Cephalic presentation. MAGDALENO 15 cm. heart rate 147 bpm. Cervix not seen due to positioning. The placenta is posterior fundal, Grade I. IMPRESSION: Normal biophysical profile 06/29 TRANSCRIBED BY: ELECTRONICALLY SIGNED BY: Bal Garcia MD Normal Not Available US BIOPHYSICAL PROFILE WO NON STRESS TESTINGon 04-07-2024 US BIOPHYSICAL PROFILE WO NON STRESS TESTING FINDINGS: Breathing Movements 2 Gross Body Movements 2 Tone 2 Qualitative amniotic fluid volume 2 A single, viable intrauterine is present. Cephalic presentation. MAGDALENO 18 cm. Heart rate 145. The placenta is posterior fundal, Grade I not associated with the cervical os. Closed cervix. IMPRESSION: Normal biophysical profile 06/29 COMMENT: 18 cm MAGDALENO TRANSCRIBED BY: ELECTRONICALLY SIGNED BY: Bal Garcia MD Normal Not Available US OB LIMITED 1+ FETUSESon 0 12-29-2023 US OB LIMITED 1+ FETUSES FINDINGS: A single, live intrauterine is present with normal cardiac rate of 151 beats per minute. Normal activity and amniotic fluid volume. Amniotic fluid index is 12.0 cm. Morphology is grossly normal. The cervix closed, difficult to measure due to shadowing.The placenta is posterior not associated with the cervical os. The current sonographic age is 18 weeks and 4 days, based on the following measurements: BPD 4.2 cm (18 weeks, 4 days) Head Circumference 15.8cm (18 weeks, 5 days) Abdominal Circumference 12.8cm (18 weeks, 3 days) Femur Length 2.8cm ( 18weeks, 5 days) Presentation breech Placenta posterior These measurements result in an estimated date of delivery of May 27, 2024. The current estimated weight is 245 grams +/- grams ( pound, 9 ounces weight by percentage 34.1%). IMPRESSION: 1.Single, live intrauterine , current sonographic age of 18 weeks and 4 days, with an estimated date of delivery of May 27, 2024 2. Posterior placenta, closed cervix, difficult to measure due to shadowing. TRANSCRIBED BY: ELECTRONICALLY SIGNED BY: Bal Garcia MD Normal Not Available HIV 1&2 AB/AG Screen (P24 AG )on 10-26-2023 HIV 1&2 AB/AG Non-Reactive [facility] Hepatitis B surface antigeno n 10-26-2023 Hepatitis B Surface Antigen Non-Reactive [facility] No Panel Informationon 10-26 [facility] Rubella IGG immune statuson 10-26-2023 Rubella immune IgG 3.29 [facility] Syphilis Total(Unknown Syphi lis Status)on 10-26-2023 Syphilis Non-Reactive [facility] Type and screenon 10-26-2023 Abo/Rh(D) Negative [facility] Ultrasound officeon 10-21-20 23 Radiology Study observation (narrative) [facility] SEE SCANNED REPORT MANUAL LY TRANSCRIBED RESULTS [facility] Ultrasound officeon 10-06-20 23 Radiology Study observation (narrative) [facility] SEE SCANNED REPORT MANUAL LY TRANSCRIBED RESULTS [facility] FREE T3on 07-16-2020 Free T3 [Mass/Vol] 2.74 pg/mL Critically low 2.77-5.27 [facility] Comment on above: Performed By: #### T SH, FT3 #### [facility] [address] [place] [address] Genna Dean FREE T4on 07-16-2020 Free T4 [Mass/Vol] 1.13 ng/dL Normal 0.78-2.19 [facility] Comment on above: Performed By: #### F T4 #### [facility] [address] [place] [address] Genna Dean TSHon 07-16-2020 TSH Qn SEE BELOW Normal [facility] Comment on above: Result Comment: <0.3 4 UIU/ml HYPERTHYROID 0.34-5.60 UIU/ml EUTHYROID >5.60 UIU/ml HYPOTHYROID Performed By: #### T SH, FT3 #### [facility] [address] [place] [address] Genna Dean TSH Qn 0.978 uIU/mL Normal 0.470-4.680 [facility] Comment on above: Performed By: #### T SH, FT3 #### [facility] [address] [place], [place] [id number] Genna Dean CBC AUTO DIFFon 05-03-2020 Basophils (Bld) [#/Vol] 0.0 103/ul Normal 0.0-0.1 [facility] Comment on above: Performed By: #### C BC #### [facility] [address] [place] [address] Genna Dean Basophils/100 WBC (Bld) 0.4 % Normal 0.2-2.0 [facility] Comment on above: Performed By: #### C BC #### [facility] [address] [place] [address] Genna Dianne Eosinophils (Bld) [#/Vol] 0.0 103/ul Normal 0.0-0.7 [facility] Comment on above: Performed By: #### C BC #### [facility] [address] [place], [place] [id number] Genna Dianne Eosinophils/100 WBC (Bld) 0.5 % Critically low 0.9-7.0 [facility] Comment on above: Performed By: #### C BC #### [facility] [address] [place] [address] Genna Dianne Erythrocyte distribution width (RBC) [Ratio] 11.9 % Normal 11.0-15.0 [facility] Comment on above: Performed By: #### C BC #### [facility] [address] [place] [address] Genna Dianne Hematocrit (Bld) [Volume fraction] 38.8 % Normal 36.0-48.0 [facility] Comment on above: Performed By: #### C BC #### [facility] [address] [place] [address] Genna Dianne Hemoglobin (Bld) [Mass/Vol] 13.2 g/dL Normal 12.0-16.0 [facility] Comment on above: Performed By: #### C BC #### [facility] [address] [place] [address] Genna Dianne IG # 0.01 10e3/ul Normal 0.00-0.03 [facility] Comment on above: Performed By: #### C BC #### [facility] [address] [place] [address] Genna Dianne IG % 0.1 % Normal 0.0-0.5 [facility] Comment on above: Performed By: #### C BC #### [facility] [address] [place], [place] [id number] Genna Dianne Lymphocytes (Bld) [#/Vol] 2.2 103/ul Normal 1.2-3.8 [facility] Comment on above: Performed By: #### C BC #### [facility] [address] [place] [address] Gennaiván Dean Lymphocytes/100 WBC (Bld) 27.4 % Normal 20.5-60.0 [facility] Comment on above: Performed By: #### C BC #### [facility] [address] [place], [place] [phone] Genna Dean MANUAL DIFF REQ NO Normal [facility] Comment on above: Performed By: #### C BC #### [facility] [address] [place], [place] [phone] Gennaiván Dean MCH (RBC) [Entitic mass] 29.7 pg Normal 26.7-34.0 [facility] Comment on above: Performed By: #### C BC #### [facility] [address] [place] [address] Gennaiván Dean MCHC (RBC) [Mass/Vol] 34.0 g/dL Normal 29.9-35.2 [facility] Comment on above: Performed By: #### C BC #### [facility] [address] [place] [address] Gennaiván Hugginsen MCV (RBC) [Entitic vol] 87.2 fL Normal 81.0-99.0 [facility] Comment on above: Performed By: #### C BC #### [facility] [address] [place] [address] Genna Dianne Monocytes (Bld) [#/Vol] 0.4 103/ul Normal 0.3-0.8 [facility] Comment on above: Performed By: #### C BC #### [facility] [address] [place] [address] Genna Dianne Monocytes/100 WBC (Bld) 4.5 % Normal 1.7-12.0 [facility] Comment on above: Performed By: #### C BC #### [facility] [address] [place], [place] [id number] Genna Dianne Neutrophils (Bld) [#/Vol] 5.5 103/ul Normal 1.4-6.5 [facility] Comment on above: Performed By: #### C BC #### [facility] [address] [place] [address] Genna Dean Neutrophils/100 WBC (Bld) 67.1 % Normal 43.0-75.0 [facility] Comment on above: Performed By: #### C BC #### [facility] [address] [place], [place] [phone] Gennaiván Dean Platelet mean volume (Bld) [Entitic vol] 11.0 fL Normal 9.5-13.5 [facility] Comment on above: Performed By: #### C BC #### [facility] [address] [place], [place] [phone] Genna Dean Platelets (Bld) [#/Vol] 215 103/ul Normal 150-450 [facility] Comment on above: Performed By: #### C BC #### [facility] [address] [place], [place] [phone] Genna Dean RBC (Bld) [#/Vol] 4.45 106/ul Normal 4.20-5.40 [facility] Comment on above: Performed By: #### C BC #### [facility] [address] [place], [place] [phone] Genna Dean WBC (Bld) [#/Vol] 8.2 103/ul Normal 4.0-11.0 [facility] Comment on above: Performed By: #### C BC #### [facility] [address] [place], [place] [phone] Genna Dean FREE T3on 05-03-2020 Free T3 [Mass/Vol] 2.58 pg/mL Critically low 2.77-5.27 [facility] Comment on above: Performed By: #### C MP, TSH, FT3 #### [facility] [address] [place] [address] Gennaiván Dean FREE T4on 05-03-2020 Free T4 [Mass/Vol] 1.21 ng/dL Normal 0.78-2.19 [facility] Comment on above: Performed By: #### F T4, B12FOL #### [facility] [address] [place], [place] [phone] Genna Dean PROF 14(COMP METB)on 020 Albumin [Mass/Vol] 4.1 g/dL Normal 3.5-5.0 [facility] Comment on above: Performed By: #### C MP, TSH, FT3 #### [facility] [address] [phone] Genna Dianne Albumin/Globulin [Mass ratio] 1.1 {ratio} Normal [facility] Comment on above: Performed By: #### C MP, TSH, FT3 #### [facility] [address] [phone] Genna Dianne ALP [Catalytic activity/Vol] 66 U/L Normal 38-126 [facility] Comment on above: Performed By: #### C MP, TSH, FT3 #### [facility] [address] [place] [address] Genna Dianne ALT [Catalytic activity/Vol] 27 U/L Normal 9-52 [facility] Comment on above: Performed By: #### C MP, TSH, FT3 #### [facility] [address] [phone] Genna Dianne Anion gap [Moles/Vol] 11.2 mmol/L Normal [facility] Comment on above: Performed By: #### C MP, TSH, FT3 #### [facility] [address] [place] [address] Genna Dianne AST [Catalytic activity/Vol] 17 U/L Normal 14-36 [facility] Comment on above: Performed By: #### C MP, TSH, FT3 #### [facility] [address] [id number] Genna Dianne Bilirubin Ql (U) 0.5 mg/dL Normal 0.2-1.3 [facility] Comment on above: Performed By: #### C MP, TSH, FT3 #### [facility] [address] [id number] Genna Dianne Calcium [Mass/Vol] 9.1 mg/dL Normal 8.4-10.2 [facility] Comment on above: Performed By: #### C MP, TSH, FT3 #### [facility] [address] [id number] Genna Dianne Chloride [Moles/Vol] 98 mmol/L Normal 98-107 [facility] Comment on above: Performed By: #### C MP, TSH, FT3 #### [facility] [address] [address] Genna Dianne CO2 [Moles/Vol] 29.4 mmol/L Normal 22.0-30.0 [facility] Comment on above: Performed By: #### C MP, TSH, FT3 #### [facility] [address] [address] Genna Dianne Creatinine [Mass/Vol] 0.83 mg/dL Normal 0.52-1.04 [facility] Comment on above: Performed By: #### C MP, TSH, FT3 #### [facility] [address] [place] [address] Genna Dianne EGFR-AF RUSSIAN >60 Normal >=60 [facility] Comment on above: Performed By: #### C MP, TSH, FT3 #### [facility] [address] [place] [address] Genna Dianne EGFR-NON AF RUSSIAN >60 Normal >=60 [facility] Comment on above: Performed By: #### C MP, TSH, FT3 #### [facility] [address] [place] [address] Genna Dianne Globulin (S) [Mass/Vol] 3.9 g/dL Normal [facility] Comment on above: Performed By: #### C MP, TSH, FT3 #### [facility] [address] [place] [address] Genna Dianne Glucose [Mass/Vol] 108 mg/dL Critically high 74-106 T [facility] Comment on above: Performed By: #### C MP, TSH, FT3 #### [facility] [address] [place] [address] Genna Dianne Potassium [Moles/Vol] 3.6 mmol/L Normal 3.4-5.0 [facility] Comment on above: Performed By: #### C MP, TSH, FT3 #### [facility] [address] [place] [address] Genna Dianne Protein [Mass/Vol] 8.0 g/dL Normal 6.1-8.2 [facility] Comment on above: Performed By: #### C MP, TSH, FT3 #### [facility] [address] [place] [address] Genna Dianne Sodium [Moles/Vol] 135 mmol/L Critically low 137-145 [facility] Comment on above: Performed By: #### C MP, TSH, FT3 #### [facility] [address] [place] [address] Genna Dianne Urea nitrogen [Mass/Vol] 11.0 mg/dL Normal 7.0-17.0 [facility] Comment on above: Performed By: #### C MP, TSH, FT3 #### [facility] [address] [place] [address] Genna Dianne Urea nitrogen/Creatinin e [Mass ratio] 13.3 mg/mg Normal [facility] Comment on above: Performed By: #### C MP, TSH, FT3 #### [facility] [address] [place] [address] Gennaiván Hugginsen TSHon 05-03-2020 TSH Qn SEE BELOW Normal [facility] Comment on above: Result Comment: <0.3 4 UIU/ml HYPERTHYROID 0.34-5.60 UIU/ml EUTHYROID >5.60 UIU/ml HYPOTHYROID Performed By: #### C MP, TSH, FT3 #### [facility] [address] [place] [address] Genna Dianne TSH Qn 1.721 uIU/mL Normal 0.470-4.680 [facility] Comment on above: Performed By: #### C MP, TSH, FT3 #### [facility] [address] [place] [address] Genna Dianne VIT B12 AND FOLATEon 020 Cobalamin (Vitamin B12) [Mass/Vol] 452.0 pg/mL Normal 239.0-931.0 [facility] Comment on above: Performed By: #### F T4, B12FOL #### [facility] [address] [place], [place] [address] Genna Dean FOLATE >20.00 Normal >=2.76 [facility] Comment on above: Performed By: #### F T4, B12FOL #### [facility] [address] [place], [place] [address] eGnna Dean Cytologyon 07-15-2017 Cytology (NOTE)[id number] Y LABORATORIESCONSULTING PATHOLOGISTS CORPORATIONANATOMIC [id number] [place] [phone] Fax: GYNECOLOGIC CYTOLOGY REPORTPatient Name: BEBE PENDLETONMR#: [id number] #[id number]: Cervical material, (ThinPrep vial, Imaging-assisted review)Clinical NlkboogG86.4 Encounter for screening for malignant neoplasm of kyiodsL46.419 Routine sports journalist exam without abnormal findingsHigh Risk HPV DNA testing is requested if the diagnosis is ASC-USINTERPRETATIONCervi darci material, (ThinPrep vial, Imaging-assisted review):Specimen Adequacy: Satisfactory for evaluation. - Endocervical/transformati on zone component present.Descriptive Diagnosis: Negative for intraepithelial lesion or malignancy. Computer Consultant: KIMMIE Mena(ASCP)Electronically Signed Outestela/07/20/2017 [facility] Social History Date Type Detail Facility Start: 10-26-2023 End: 12-03-2023 Tobacco smoking status NHIS Never smoked tobacco [facility] Start: 10-26-2023 End: 12-03-2023 Tobacco use and exposure Smokeless tobacco non-user [facility] Start: 12-03-2023 End: 02-09-2024 Alcohol intake Lifetime non-drinker (finding) [facility] Start: 12-03-2023 End: 01-10-2024 History of Social function [facility] Start: 12-03-2023 End: 01-10-2024 Tobacco use panel [facility] Start: 10-26-2023 Alcohol Comment caffeine: 1-2 cups per day [facility] Start: 09-03-2023 [facility] Start: 1990 Sex Assigned At Not on file P [facility] Tobacco smoking status Unknown i f ever smoked [facility] Work Phone: Housing Instability Unknown [facility] NEGATED: Highlighted row Assertion Exposure to pollution (event) [facility] Work Phone: NEGATED: Highlighted row Assertion Tobacco user (finding) [facility] Work Phone: Vital Signs Date Time Vital Sign Value Performing Clinician Facility 02-09-2024 15:01-0400 Diastolic blood pressure 82 mm[Hg] Vinny Adorno MD Work Phone: [facility] 02-09-2024 15:01-0400 Heart rate 96 /min Vinny Adorno MD Work Phone: [facility] 02-09-2024 15:01-0400 Systolic blood pressure 130 mm[Hg] Vinny Adorno MD Work Phone: [facility] 01-10-2024 13:42-0500 Body height 172.7 cm Thomas Saxena MD Work Phone: [facility] 01-10-2024 13:42-0500 Body mass index (BMI) [Ratio] 29.8 kg/m2 Thomas Saxena MD Work Phone: [facility] 01-10-2024 13:42-0500 Body weight 88.91 kg Thomas Saxena MD Work Phone: [facility] 01-10-2024 13:42-0500 Diastolic blood pressure 79 mm[Hg] Thomas Saxena MD Work Phone: [facility] 01-10-2024 13:42-0500 Heart rate 102 /min Thomas Saxena MD Work Phone: [facility] 01-10-2024 13:42-0500 Systolic blood pressure 114 mm[Hg] Thomas Saxena MD Work Phone: [facility] 12-23-2023 15:24-0500 Body mass index (BMI) [Ratio] 29.24 kg/m2 Rakesh Floro CNM Work Phone: [facility] 12-23-2023 15:24-0500 Body weight 89.81 kg Rakesh Nguyen CNM Work Phone: [facility] 12-23-2023 15:24-0500 Diastolic blood pressure 82 mm[Hg] Rakesh Nguyen CNM Work Phone: [facility] 12-23-2023 15:24-0500 Systolic blood pressure 120 mm[Hg] Rakesh Nguyen CNM Work Phone: [facility] 06-13-2020 08:58-0400 BMI (Body Mass Index) 29.6 kg/m2 [facility] Work Phone: Comment on above: per patient report 06-13-2020 08:58-0400 Body weight 88.45 kg [facility] Work Phone: Comment on above: per patient report 06-13-2020 08:58-0400 BSA (Body Surface Area) 2.02 m2 [facility] Work Phone: Comment on above: per patient report 06-13-2020 08:58-0400 Height 172.72 cm [facility] Work Phone: Comment on above: per patient report Clinical Notes 12-23-2023 to 02-09-2024 Vinyn Adorno MD - 02/09/2024 3:15 PM Walter Coon RN - 02/09/2024 3:15 PM Zhane Saxena MD - 01/10/2024 2:15 PM Davie Coon RN - 01/10/2024 2:15 PM EST Note Date & Type Note Facility 02-09-2024 History of Present illness Narrative [facility] Office Visit Note HPI: Bebe Pendleton is a 34 y.o. @ 24w5d who is presenting for an office visit regarding Chief Complaint Patient presents with Fertility Preservation SUBCHORIONIC HEMATOMA Hyperthyroidism Her is complicated by OB History 1 Para Term AB Living SAB IAB Ectopic Multiple Live Births She reports that she is doing well. She reports normal movements and she denies LOF, contractions, vaginal bleeding, headache, blurry vision, RUQ pain and edema. The primary encounter diagnosis was Subchorionic hematoma in second trimester, single or unspecified fetus. Diagnoses of resulting from assisted reproductive technology in second trimester, Low-lying placenta, Hyperthyroidism affecting , antepartum, and 24 weeks gestation of were also pertinent to this visit. She has opted out of aneuploidy testing REVIEW OF SYSTEMS: Head and Neck: Negative for any dizziness and headaches. Cardiovascular and Respiratory System: Denies any chest pain, shortness of breath, and coughing. Abdominal and System: Denies any abdominal pain, nausea, vomiting, vaginal bleeding, and vaginal discharge Complications: Problem List Items Addressed This Visit None Visit Diagnoses Subchorionic hematoma in second trimester, single or unspecified fetus - Primary resulting from assisted reproductive technology in second trimester Low-lying placenta Hyperthyroidism affecting , antepartum 24 weeks gestation of PMH: Past Medical History: Diagnosis Date Hyperthyroidism PSHIST: History reviewed. No pertinent surgical history. OB Hx: OB History Para Term AB Living 1 SAB IAB Ectopic Multiple Live Births # Outcome Date GA Lbr Mina/2nd Weight Sex Delivery Anes PTL Lv 1 Current Allergies: No Known Allergies Meds: Prior to Admission medications Medication Sig Start Date End Date Taking? Authorizing Provider BABY ASPIRIN ORAL Take by mouth. Not In System Ref Prov methIMAzole (TAPAZOLE) 5 mg tablet Take 1 tablet (5 mg total) by mouth 4 (four) times a week. Not In System Ref Prov ondansetron (ZOFRAN) 4 mg tablet Take 1 tablet (4 mg total) by mouth every 8 (eight) hours as needed for nausea or vomiting. Not In System Ref Prov promethazine (PHENERGAN) 12.5 mg suppository Insert 1 suppository (12.5 mg total) into the rectum every 6 (six) hours as needed for nausea or vomiting. Not In System Ref Prov propylthiouraciL (PTU) 50 mg tablet Take by mouth 3 (three) times a day. Patient not taking: Reported on 01/10/2024 Not In System Ref Prov SH: Social History Socioeconomic History Marital status: Spouse name: Not on file Number of children: Not on file Years of education: Not on file Highest education level: Not on file Occupational History Not on file Tobacco Use Smoking status: Never Smokeless tobacco: Never Substance and Sexual Activity Alcohol use: Never Drug use: Never Sexual activity: Not on file Other Topics Concern Not on file Social History Narrative Not on file Social Determinants of Health Financial Resource Strain: Not on file Food Insecurity: No Food Insecurity (01/10/2024) Hunger Screening Food Insecurity - Worry: Never True Food Insecurity - Inability: Never True Transportation Needs: Not on file Physical Activity: Not on file Stress: Not on file Social Connections: Not on file Interpersonal Safety: Not on file Housing Instability: Not on file Physical Exam: Vital Signs Vitals: 02/09/24 1501 BP: 130/82 Pulse: 96 Physical Exam: Gen: Not in acute distress, alert and oriented. Eyes: Pupils equal and reactive Chest: Nonlabored breathing Cardiac: Pulse was regular on vital signs assessment Abdomen: Gravid Skin/extremities: Appears intact. No visible lesions MS:no visible edema Neuro: No focal deficits Assessment/Plan 34 y.o. @ 24w5d here for office visit regardin. Subchorionic hematoma in second trimester, single or unspecified fetus 2. Low-lying placenta Reviewed sonographic assessment. There is interval improvement in the size of the subchorionic hematoma however it is still persists. It appears that it is still covering the cervix partially transabdominally. Continue with pelvic rest precautions. Recommend re-evaluation at 32 weeks. 3. resulting from assisted reproductive technology in second trimester Please see prior consultation note 4. Hyperthyroidism affecting , antepartum Please see prior consultation note. Is currently following up with endocrinology 5. 24 weeks gestation of Recommendations: Continue follow-up with endocrinology Serial growth assessments every 4 weeks after the anatomy scan Follow-up in 4 weeks for completion of limited anatomy and growth assessment testing to be initiated at 32 weeks with weekly NST and weekly DVP in view of persistent placental hematoma as well as hyperthyroidism on medical management and IVF . Follow-up for re-evaluation of placentation at 32 weeks. MFM office visit at that time Delivery recommended at 39 weeks or earlier as clinically indicated. Timing of delivery will depend on placenta evaluation at 32 weeks. In addition to that anesthesia consultation is recommended at the time of delivery to be initiated by primary OB team secondary to hyperthyroidism. Delivery at 39 weeks based on Risks Associated With Assisted Reproductive Technology Number 671 (Replaces Committee Opinion No. 324, September 2005. Reaffirmed 2019) stillbirth is more frequent in pregnancies achieved through IVF/ICSI at a rate of 16.2/1,000 compared with a rate of 2.3/1,000 in naturally occurring pregnancies. The original article compared with women who conceived spontaneously and women who conceive after non-IVF ART, women who conceived after IVF/ICSI had an increased risk of stillbirth Tuan Fong T.B. Henriksen, IVF and stillbirth: a prospective follow-up study, Human Reproduction, Volume 25, Issue 5, March 2010, Pages 5202-9492 Plan reviewed with patient. She vocalized understanding all questions answered. Subchorionic hematoma in second trimester, single or unspecified fetus [O41.8X20, O46.8X2] The patient is to continue with routine care in your office [facility], the CDC, and other organizations representing maternal and public health professionals recommend that , , and lactating people and those considering receive the COVID-19 vaccination. Vaccination is the best method to reduce maternal and complications of SARS-CoV-2 infection. This document was created with [employer] technology. Though I make every effort to review the dictation as it is transcribed, on occasion the spoken word can be misinterpreted by the technology leading to inappropriate words, phrases, or sentences. This note is addressed to the requesting provider as a consultation for clinical guidance. Specific medical abbreviations are occasionally used and those are generally approved by the [place]?Board of?Obstetrics and?Gynecology?as well as?Roxanne s abbreviations. The above plan of care was based solely on the diagnoses for which a consultation was requested. ?More frequent testing may be indicated based on her other medical/obstetrical conditions. The management of other or medical conditions is beyond the scope of requested consultation and will continue to be followed by the primary print cutter or primary care provider. Thank you for allowing me to participate in her care. Please contact me if you have any concerns. Headache/epigastric pain/blurry vision/swelling? No Cramping/contractions? No Abnormal vaginal discharge? No Spotting or vaginal bleeding? No Loss of fluid like your water may have broken? No Recent ER visits or hospitalizations? No Any concerns that you would like me to mention to the provider today? No documented in this encounter [facility] 01-10-2024 History of Present illness Narrative REASON FOR CONSULTATION: anatomy HISTORY OF PRESENT ILLNESS: Bebe Pendleton is a pleasant 34 y.o. at 20w3d due on Estimated Date of Delivery: 05/26/24 . 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 Follows with cold strip roller, Amberly Lopez Vaginal bleeding at 18w4d With regards to VB in this , pt woke from sleep with abrupt onset, spontanesou vaginal bleeding, 3pads full 2-3hours. Received RhoGam x1 in the ER. She has not had vaginal bleeding since the event. Today, the patient is doing well. She denies headaches, vision changes, nausea, vomiting, right upper quadrant or epigastric pain, SOB or chest pain. She denies contractions, vaginal bleeding, leaking of fluid. Aneuploidy screening: declined Carrier screening:declined PAST OBSTETRICAL HISTORY: OB History Para Term AB Living 1 SAB IAB Ectopic Multiple Live Births # Outcome Date GA Lbr Mina/2nd Weight Sex Delivery Anes PTL Lv 1 Current MEDICAL HISTORY: Past Medical History: Diagnosis Date Hyperthyroidism SURGICAL HISTORY: No past surgical history on file. ALLERGIES: No Known Allergies CURRENT MEDICATIONS: Current Outpatient Medications: BABY ASPIRIN ORAL, Take by mouth., Disp: , Rfl: methIMAzole (TAPAZOLE) 5 mg tablet, Take 1 tablet (5 mg total) by mouth 4 (four) times a week., Disp: , Rfl: ondansetron (ZOFRAN) 4 mg tablet, Take 1 tablet (4 mg total) by mouth every 8 (eight) hours as needed for nausea or vomiting., Disp: , Rfl: promethazine (PHENERGAN) 12.5 mg suppository, Insert 1 suppository (12.5 mg total) into the rectum every 6 (six) hours as needed for nausea or vomiting., Disp: , Rfl: propylthiouraciL (PTU) 50 mg tablet, Take by mouth 3 (three) times a day. (Patient not taking: Reported on 01/10/2024), Disp: , Rfl: REVIEW OF SYSTEMS: Head and Neck: Negative for any dizziness and headaches. Cardiovascular and Respiratory System: Denies any chest pain, shortness of breath, and coughing. Abdominal and System: Denies any abdominal pain, nausea, vomiting, vaginal bleeding, and vaginal discharge FAMILY/GENETIC HISTORY: No family history of VTE, cardiac defects and mental retardation. SOCIAL HISTORY:Patient denies tobacco use, alcohol use, or drug use. RECENT HOSPITALIZATION: REVIEW OF TESTS AND ULTRASOUND REPORTS: Referral records and [facility] chart were reviewed Pertinent Ultrasound findings are see formal ultrasound report. Abstract on 12/03/2023 Component Date Value Ref Range Status Syphilis 10/26/2023 non-reactive Final Rubella immune IgG 10/26/2023 3.29 Final Abo/Rh(D) 10/26/2023 O Negative Final Antibody Screen 10/26/2023 negative Final HIV 1&2 AB/AG 10/26/2023 non-reactive Final Hepatitis B Surface Antigen 10/26/2023 non-reactive Final HABITS: Patient activity no restrictions, diet no restrictions PHYSICAL EXAMINATION: BP 114/79 Pulse 102 Ht 172.7 cm (5' 8 ) Wt 88.9 kg (196 lb) BMI 29.80 kg/m Well-appearing in no distress. Respirations not labored, speaking comfortably in full sentences Gravid abdomen OVERALL ASSESSMENT -Bebe Pendleton is a pleasant 34 y.o. at 20w3d -subchorionic hematoma -IVF -Hyperthyroidism, TSH 1.43 10/2023, transitioned from PTU to methimazole 5mg (x4/weekly) COUNSELING Subchorionic hematoma Subchorionic hematoma, also referred to as subchorionic hemorrhage, occurs not infrequently in pregnancies, broad incidence rate of 1-20%. It is the most common cause of vaginal bleeding in patients between 10-20 weeks' gestation. Subchorionic hemorrhage is bleeding beneath the chorion membrane that enclose the embryo of the uterus, occurs due to partial detachment of the chorion membrane from the wall of the uterus. It is associated with increased risk of loss if the hemorrhage accounts for more than 25% of the volume of the gestational sac. Subchorionic hematoma is associated with an increased risk of early loss, (8.9% vs 17.6%, OR 2.18, 95%CI 1.3-3.7), stillbirth (0.9% vs 1.9%, OR 2.09, 95%CI 1.2-3.67), abruption (0.7 to 3.6%, OR 5.7, 9%CI 3.9-8.3), and premature rupture of membranes (2.3% vs 3.8%; OR 1.64, 95%CI 1.22-2.21) and delivery (10.1% vs 13.6%; OR 1.4, 95%CI 0.37-5.89). [ outcomes in women with subchorionic hematoma: a systematic review and meta-analysis. OBGYN 2011; PMID [id number]] Severity of outcomes also depends on the characteristics of the subchorionic hematoma (retroplacental versus marginal), size and extent, gestational age at diagnosis. Of note, there was not increased risk of small for gestational age (OR 1.69, 95% CI 0.89-3.19) or pre-eclampsia (OR 1.47, 95% CI 0.37-5.89). We reviewed that the subchorionic hematoma while significant is marginal. Thus we anticipate the will do well. Nonetheless, due to association with FGR, we recommend a 3rd T growth ultrasound at 28 weeks and again at 34 weeks of gestation, along with weekly NSTs with MAGDALENO starting at 34 weeks of gestation. IVF In a systematic review, pregnancies achieved with IVF or ICSI are associated with higher rates of total congenital heart disease that in those pregnancies occurring naturally (1.3% vs 0.7%). [facility] suggest that echocardiogram be offered to patients with pregnancies achieved with either IVF or ICSI. In addition, assessment of growth should be performed in the 3rd trimester for pregnancies with IVF. Low-dose aspirin for patients with pregnancies with IVF for attempted preeclampsia prophylaxis is not recommended unless there are additional risk factors. Due to the increased risk of stillbirth, weekly surveillance beginning 36 weeks' gestation is recommended. Thyroid Disease in In hyperthyroidism. TSH is suppressed below trimester applicable values. If TSH suppressed, next step is for free T4 and total T3 (free T3 if total T3 not available). Free T4, free T3 and/or corrected total T3 are elevated above applicable norms. Patients with true diagnosis of hyperthyroidism should have free T4 maintained at upper limit of lab normal or with mild elevation. Medical treatment with PTU or methimazole recommended if true diagnosis of hyperthyroidism evident and treatment required. Beta-dany therapy is used in patients with uncontrolled disease. The risk of glucose intolerance, preeclampsia, growth disorders, and goiter and or after hyperthyroidism increased. Auto antibody testing abnormalities somewhat increase the risk of transient hyperthyroidism after . The recorded risk is approximately 1-5% and not directly associated with degree of maternal thyroid control. The diagnosis is typically transient, so is the antibodies are sequestered in the 's bloodstream, the symptoms resolve. Serial assessment of growth in patients with uncontrolled hyperthyroidism recommended. Profoundly uncontrolled hypothyroidism is a candidate for surveillance. Generally speaking, delivery should occur at term unless delivery decision driven by comorbidity, growth restriction, and or other abnormality or issue. TSH along with free T3 and free T4 should be repeated every 4 weeks to ensure adequate thyroid medication has been given. Patient we will continue with methimazole 5 mg 4 times weekly. She has an cold strip roller that she would close follow up with. SUMMARY/RECOMMENDATION: Anti TSH receptor antibodies a baseline at the beginning of , collect through primary OB/endocrinology Repeat anti TSH receptor antibody in the 2nd trimester, collect through primary OB/endocrinology Monitor TSH, free T3 and free T4 every 4 weeks for the remainder of Patient is scheduled to return to clinic in 4 weeks to complete level 2 anatomy ultrasound and echocardiogram, through [facility] office Patient is scheduled to return to clinic in 12 weeks to re-evaluate lower uterine segment Recommend serial growth ultrasound 28 weeks and repeated 34 weeks of gestation, through MFM office with evaluation of thyroid gland Reviewed signs symptoms of labor Monitor for bleeding Recommend testing with weekly NSTs and MAGDALENO starting at 34 weeks, through primary OB office Delivery recommended at term, >=39wk GA Follow up in MFM in 4 weeks DISPOSITION: At this point the patient is in complete care of her print cutter. Patient does have ultrasound and office visit scheduled with us. Thank you for allowing me to participate in the care of Bebe Pendleton. If there any questions please do not hesitate to contact us. Total time spent was 49 minutes: Preparing to see the patient (e.g., review of tests) Obtaining and/or reviewing separately obtained history Performing a medically appropriate examination and/or evaluation Counseling and educating the patient/family/caregiver Ordering medications, tests, or procedures Referring and communicating with other health career coach (not separately reported) Documenting clinical information in the electronic or other health record Independently interpreting results (not separately reported) and communicating results to the patient/family/caregiver Thomas Saxena MD Maternal- Medicine [facility] [address] [place] [address] [facility], the CDC, and other organizations representing maternal and public health professionals recommend that , , and lactating people and those considering receive the COVID-19 vaccination. Vaccination is the best method to reduce maternal and complications of SARS-CoV-2 infection. This document was created with [employer] technology. Though I make every effort to review the dictation as it is transcribed, on occasion the spoken word can be misinterpreted by the technology leading to inappropriate words, phrases, or sentences. This note is addressed to the requesting provider as a consultation for clinical guidance. Specific medical abbreviations are occasionally used and those are generally approved by the [place]?Board of?Obstetrics and?Gynecology?as well as?Roxanne carlson abbreviations. The above plan of care was based solely on the diagnoses for which a consultation was requested. ?More frequent testing may be indicated based on her other medical/obstetrical conditions. The management of other or medical conditions is beyond the scope of requested consultation and will continue to be followed by the primary print cutter or primary care provider. Note to patient: The Century Cures Act makes medical notes like these available to patients in the interest of transparency. However, be advised this is a medical document. It is intended as peer to peer communication. It is written in medical language and may contain abbreviations or verbiage that are unfamiliar. It may appear blunt or direct. Medical documents are intended to carry relevant information, facts as evident, and the clinical opinion of the practitioner. Headache/epigastric pain/blurry vision/swelling? No Cramping/contractions? No Abnormal vaginal discharge? No Spotting/vaginal bleeding? Bleeding around 18 weeks but has stopped since then Loss of fluid like your water may have broken? No Cats in the home? No Do you change the litter box? No Flu vaccine? No Genetic testing done this here or other office? No Have you been seen here at [facility] in a previous ? No Recent ER visits or hospitalizations? Went to the ER in the beginning of December for vaginal bleeding. No ER trips since then Bring blood sugar log or meter with you today? (Please bring them with you for every visit at [facility]) No Traveled outside the country in the past 6 month No Any concerns that you would like me to mention to the provider today? No documented in this encounter [facility] 12-23-2023 History of Present illness Narrative Subjective No chief complaint on file. Bebe Pendleton is a 33 y.o. at 17w6d with a working estimated date of delivery of 05/26/2024, by Ultrasound who presents for a routine visit. She denies vaginal bleeding, leakage of fluid, decreased movements, or contractions. Her is complicated by: embryo implantation, constipation The following portions of the chart were reviewed this encounter and updated as appropriate: Objective Physical Exam weight: 198 lb Expected Total Weight Gain: 15 lb-25 lb Pregravid BMI: 28.64 BP: 120/82 Urine glucose-negative,protein-negative Labs- reviewed Imaging Assessment/Plan Diagnoses and all orders for this visit: Encounter for care of first , second trimester Nausea and vomiting in Patient c/o constipation and some nausea still. She does have Zofran ODT and states it does help. Advised her to take colace 100 mg BID, increase water and fluid intake, increase vegetables and fruits. Is seeing [facility] in a couple of weeks for anatomy scan due to embryo implantation. Continue vitamin. Labs reviewed. Rhogam GTT . Follow up in 2 weeks for a routine visit. documented in this encounter [facility] Evaluation note Diagnosis Encounter for care of first , second trimester- Primary Nausea and vomiting in Unspecified vomiting of , unspecified as to episode of care Other constipation documented in this encounter [facility] HealthcareEvaluation note* Diagnosis 20 weeks gestation of - Primary Hyperthyroidism affecting , antepartum Subchorionic hematoma in second trimester, single or unspecified fetus resulting from assisted reproductive technology in second trimester [facility] Diagnosis Hyperthyroidism affecting , antepartum- Primary Subchorionic hematoma in second trimester, single or unspecified fetus resulting from assisted reproductive technology in second trimester [facility] Diagnosis Subchorionic hematoma in second trimester, single or unspecified fetus- Primary resulting from assisted reproductive technology in second trimester Low-lying placenta Hemorrhage from placenta previa, unspecified as to episode of care Hyperthyroidism affecting , antepartum 24 weeks gestation of documented [facility] this [facility] Diagnosis Subchorionic hematoma in second trimester, single or unspecified fetus- Primary resulting from assisted reproductive technology in second trimester Low-lying placenta Hemorrhage from placenta previa, unspecified as to episode of care Hyperthyroidism affecting , antepartum 24 weeks gestation of [facility] filedocumented in this [facility] filedocumented in this [facility] filedocumented in this [facility] filedocumented in this encounter [facility] Summary Purpose Family History No Family History Records Found Includes: Family History in patient's chart No Family History RecordedNo Family History Records FoundNo Family History Records FoundNo Family History Records FoundNo Family History Records FoundNo Family History Records Found Advance Directives No Advanced Directives Records Found Includes: Current Advance Directives No Advance Directives RecordedNo Advanced Directives Records FoundNo Advanced Directives Records FoundNo Advanced Directives Records FoundNo Advanced Directives Records FoundNo Advanced Directives Records Found Reason for Referral Specialty Diagnoses / Procedures Referred By Baldo napier Referred To Contact Maternal and Medicine Diagnoses Hyperthyroidism affecting , antepartum Subchorionic hematoma in second trimester, single or unspecified fetus resulting from assisted reproductive technology in second trimester Procedures US [facility]FM with or without consult Thomas Saxena MD [address] [place] [address] [facility] [address] [place] [address] Referral ID Status Reason Start Date Expiration Date V isits Requested Visits Authorized [id number] Pending Review 01/10/2024 01/09/2025 1 1 Referral ID Status Reason Start Date Expiration Date V isits Requested Visits Authorized [id number] Pending Review 01/10/2024 01/09/2025 1 1 Specialty Diagnoses / Procedures Referred By Contac t Referred To Contact Maternal and Medicine Diagnoses Subchorionic hematoma in second trimester, single or unspecified fetus resulting from assisted reproductive technology in second trimester Low-lying placenta Hyperthyroidism affecting , antepartum 24 weeks gestation of Procedures US [facility] with or without consult Vinny Adorno MD [address] [place] [address] [facility] [address] [place] [address] Referral ID Status Reason Start Date Expiration Date V isits Requested Visits Authorized [id number] Pending Review 02/09/2024 02/08/2025 1 1 Assessments Findings Encounter Date Exposure to a viral disease Telemedicine with An carli Klein CNP 06/13/2020 Instructions Instructions not supported for this document type No Instructions Recorded History of Present Illness History of Present Illness not supported for this document type No History of Present Illness Recorded Review of System Review of Systems not supported for this document type No Review of Systems Recorded Physical Exam Physical Exam not supported for this document type No Physical Exam Recorded Additional Source Comments INFORMATION SOURCE (unrecogn ized section and content) DATE CREATED AUTHOR 05/18/2018 [facility] DATE CREATED AUTHOR AUTHOR'S ORGANIZ ATION 07/23/2020 [facility] DATE CREATED AUTHOR AUTHOR'S ORGANIZ ATION 10/22/2023 [facility] DATE CREATED AUTHOR AUTHOR'S ORGANIZ ATION 03/11/2024 [facility] DATE CREATED AUTHOR AUTHOR'S ORGANIZ ATION 04/05/2024 [facility] DATE CREATED AUTHOR AUTHOR'S ORGANIZ ATION 05/17/2024 [facility] Special[facility] EPIC Evaluations & Outcomes (unre cognized section and content) Includes: Evaluations & Outcomes for active GoalsNo Outcomes Recorded Care Teams (unrecognized sec tion and content) Collection Systems Foreman Relationship Specialty Start Date End Date Unallocated, [place] Provider [address] [place] [address] PCP - General 10/26/23 [employer] Foreman Relationship Specialty Start Date End Date Unallocated, [place] Provider [address] [place] [address] PCP - General 10/26/23 Reason for Visit (unrecogniz ed section and content) Reason Comments Fertility Preservation Hyperthyroidism Reason Comments Fertility Preservation SUBCHORIONIC HEMATOMA Hyperthyroidism FOR RECORDS PERTAINING TO PATIENTS WHO ARE OR HAVE BEEN ENROLLED IN A CHEMICAL DEPENDENCY/SUBSTANCEABUSE PROGRAM, SOME INFORMATION MAY BE OMITTED. This clinical summary was aggregated from multiple sources. Caution should be exercised in using it in the provision of clinical care. This summary normalizes information from multiple sources, and as a consequence, information in this document may materially change the coding, format and clinical context of patient data. In addition, data may be omitted in some cases. CLINICAL DECISIONS SHOULD BE BASED ON THE PRIMARY CLINICAL RECORDS. [facility] [employer] [facility] provides no warranty or guarantee of the accuracy or completeness of information in this document.
[2024-05-19 01:01] LABS: Hematocrit 34.7 % (36.0-48.0); Hemoglobin 11.7 g/dL (12.0-16.0); Mean Corpuscular HGB Conc 33.7 g/dL (29.9-35.2); Mean Corpuscular Hemoglobin 29.7 pg (26.7-34.0); Mean Corpuscular Volume 88.1 fL (81.0-99.0); Mean Platelet Volume 12.2 fL (9.5-13.5); Platelet Count 230 10^3/uL (150-450); Red Blood Count 3.94 10^6/uL (4.20-5.40); Red Cell Distribution Width 12.7 % (11.0-15.0); White Blood Count 11.6 10^3/uL (4.0-11.0)
[2024-05-19] MEDS: DINOPROSTONE 10 MG VAG INSERT.ER VAGINAL ×2 (01:20→16:15)
[2024-05-19 01:21] LABS: Amphetamine Screen Urine NEGATIVE (NEGATIVE); Barbiturates Screen Urine NEGATIVE (NEGATIVE); Benzodiazepines Screen Urine NEGATIVE (NEGATIVE); Buprenorphine Screen Urine NEGATIVE (NEGATIVE); Cannabinoid Screen Urine NEGATIVE (NEGATIVE); Cocaine Screen Urine NEGATIVE (NEGATIVE); Methadone Screen Urine NEGATIVE (NEGATIVE); Methamphetamines Screen Urine NEGATIVE (NEGATIVE); Opiate Screen Urine NEGATIVE (NEGATIVE); Oxycodone Screen Urine NEGATIVE (NEGATIVE); Phencyclidine Screen Urine NEGATIVE (NEGATIVE); Tricyclic Antidepressant Urine NEGATIVE (NEGATIVE)
[2024-05-19] MEDS: CALCIUM CARBONATE 500 MG (200MG ELEMENTAL) TAB CHEW PO (05:45)
[2024-05-19] MEDS: ONDANSETRON 4 MG RAPDIS TABLET SL (09:07)
--- NOTE | 2024-05-19 11:08 | PC.NURSE ---
1035 Radha Nguyen CNM calls in and updated. Will call with update once cervidil is removed
--- NOTE | 2024-05-19 13:51 | PC.NURSE ---
Radha Nguyen called with exam report and orders received for additional dose of cervidil at 4 pm. Explained to pt who will ambulate and eat in interim
--- NOTE | 2024-05-19 14:40 | PC.NURSE ---
up to shower after ambulating
[2024-05-19] MEDS: ONDANSETRON PF 4 MG/2 ML VIAL IV (20:14)
[2024-05-20] VITALS (52 sets, daily range): BP systolic 78–149; BP diastolic 53–128; PULSE 81–139; TEMP 36.1–36.8; O2SAT 89–100
[2024-05-20] MEDS: LACTATED RINGER'S SOLUTION 1,000 ML 125 ML IV ×3 (05:42→14:57)
[2024-05-20] MEDS: PENICILLIN G POTASSIUM 5,000,000 UNIT in 0.9 % SODIUM CHLORIDE 100 ML 200 UNIT IV (05:42)
[2024-05-20] MEDS: OXYTOCIN/0.9 % SODIUM CHLORIDE 10 UNITS/500 ML PLAST..BAG 6 UNIT IV (05:42)
[2024-05-20] MEDS: ONDANSETRON PF 4 MG/2 ML VIAL IV (06:36)
[2024-05-20] MEDS: PENICILLIN G POTASSIUM 2,500,000 UNIT in 0.9 % SODIUM CHLORIDE 50 ML 100 UNIT IV (10:10)
--- NOTE | 2024-05-20 12:55 | PM.OBHP ---
OB - H&P: HPI History of Present Illness Chief complaint: INDUCTION : 1 Para: 0 Gestational age based on last menstrual period: 39.1 Indications for induction: other (Grave's disease, donor embryo, hematoma in 2nd trimester ) History of Present Dating criteria: LMP confirmed by 1st trimester US care: good care Ultrasounds: normal 1st trimester US and normal mid trimester US complications: hemorrhage (had hematoma in 2nd trimester, saw MFM and weekly NSTs and BPPs ) complications comment: 2nd trimester bleeding Medical complications OB: other (Graves disease ) Labs Blood type: 0 (-) negative Rubella: immune RPR/VDLR: nonreactive GBS status: negative HBsAG: negative Review of Systems ROS Status of ROS: 10 or more systems reviewed and unremarkable except as noted in history and below PFSH PFSH Social History Smoking status: Never smoker Highest level of school completed/degree received: Associate degree: academic program Meds Home Medications and Allergies Home Medications ?Medication ?Instructions ?Recorded ?Confirmed ?Type aspirin 81 mg capsule 81 mg PO DAILY 12/28/23 12/28/23 History methimazole 5 mg tablet 5 mg PO DAILY 12/28/23 12/28/23 History ondansetron 8 mg disintegrating 4 mg PO Q8H 12/28/23 12/28/23 History tablet Allergies Allergy/AdvReac Type Severity Reaction Status Date / Time No Known Drug Allergies Allergy Verified 12/28/23 00:46 Exam Constitutional Vital Signs, click to edit/add: Last Vital Signs Temp 99.5 F 05/19/24 16:19 Pulse 85 05/20/24 11:26 Resp 16 05/19/24 16:19 BP 116/70 05/20/24 11:26 Common normals: no apparent distress, average body habitus, oriented x3, no limitations, healthy appearing, alert and well nourished General appearance: cooperative Orientation/consciousness: Yes awake, Yes oriented to person, Yes oriented to place and Yes oriented to time HENMT Common normals: normocephalic Eye Common normals: EOMs intact bilaterally Neck & C-Spine Common normals: full ROM Lymph Lymphatic: no lymphadenopathy noted Chest Common normals: inspection of chest normal Respiratory Common normals: normal respiratory effort, no retractions, no use of accessory muscles, clear to auscultation bilaterally and percussion normal Auscultation: clear to auscultation bilaterally Cardio Common normals: regular rate and regular rhythm Rate: regular rate Rhythm: regular rhythm GI Common normals: Normal to inspection, nondistended, normoactive bowel sounds present, soft to palpation and non-tender Auscultation: normoactive bowel sounds Common normals: no CVA tenderness Back & Pelvis Common normals: no CVA tenderness Extremity Common normals: normal to inspection and full ROM Neuro Common normals: oriented x3 Sensorium/orientation: awake, alert, oriented to person, oriented to place and oriented to time Psych Common normals: mental status grossly normal, thought process normal and cooperative Attitude: calm OB - A/P Assessment and Plan (1) Term : (2) Graves disease:
[2024-05-20] MEDS: METOCLOPRAMIDE HCL 10 MG/2 ML VIAL IVP (13:39)
[2024-05-20] MEDS: CITRIC ACID/SODIUM CITRATE 30 ML SOLUTION ORACIT SHOHL'S SOLN PO (13:39)
[2024-05-20] MEDS: FAMOTIDINE/PF 20 MG/2 ML VIAL IV (13:39)
[2024-05-20] MEDS: CEFAZOLIN SODIUM/DEXTROSE,ISO 2 GM/50 ML PIGGYBACK IV ×2 (14:01→21:07)
--- NOTE | 2024-05-20 15:19 | P.OBPRC_ITS ---
Procedure Pre-op/Post-op diagnoses: Pre-Op/Post-Op Diagnoses Operation Date: 05/20/24 13:30 <No data on this case meets the specified criteria> Failed Induction Procedure: Procedures Operation Date: 05/20/24 13:30 Actual Procedure Side Surgeon Naomi edwards assisted LT with delivery of viable baby girl Not Applicable Misty Sutton Analysis Engineer: RAKESH GALLOWAY Estimated blood loss (mL): 700 Disposition: PACU Anesthesia type: Spinal Complications: none Narrative: Patient presented to L&D for Induction of labor at 39+ weeks and received x2 cervidils 12 hours apart followed by Pitocin per protocol with no cervical change which remained unfavorable. Options were discussed with patient's OB and me. Risks/benefits/procedure were discussed. Consent signed to proceed with Primary C/S for failed induction. All questions answered. Patient was taken to the OR, given spinal anesthesia. Patient was placed in supine position. A sandoval catheter had been placed prior to entry into the OR. Patient's abdomen was prepped in the usual fashion and then draped in the usual fashion. An Allis was used to confirm adequate anesthesia. Pfannenstiel incision was then made, carried down to the fascia with electrocautery. The fascia was nicked in the midline then extended sharply with Wan scissors to the left and then right and then fascia extended superiorly and inferiorly after placing kochers - sharply. Peritoneum entered thru sharply and extended bluntly. The bladder blade was then placed. The bladder flap was extended transverely with metzenbaum scissors and bluntly inferiorly. Incision was then made on the uterus with assist of allis the uterus was entered sharply and extended bluntly craniocaudal. Baby VTX was high and to the right of midline. Nuchal cord x1 loose was also noted. Mity Vac was attempted x3 but would pop off easily despite following pressure guidelines on the mity vac gauge. The VTX then rotated into the incision and the mity vac again applied and baby delivered without difficulties. Cord was reduced after baby was fully delivered. Cord was clamped and cut and handed off to peds for resuscitative purposes. Cord gas was obtained. Cord blood was then obtained and placenta was manually removed with remaining membranes removed with ring forceps. The uterus responded well to the IV pitocin. The uterus was minimally mecounium stained despite the amniotic fluid was clear. The uterus was externalized and reapproximated with 0-vicryl suture with additional o-vicryl suture at the right edge closing the incision in 2 layers. The uterus was reinternalized. There was an area of bleeding 2-3cm right of midline and an additional figure 8 0-vicryl stitch placed with hemostasis noted. gutters were cleaned with tape. Hemostasis was noted. Peritoneum was then closed with 2-O vicryl suture in a running stitch. The fascia was closed with O-Vicryl suture x2. SubQ fat layer was irrigated and reapproximated. Skin was reapproximated with 4-O vicryl suture. Steri Strips applied and bandage. Patient tolerated the procedure well and transferred to recovery room in stable condition. tape count/needle count/knife count correct at the end of the procedure. EBL - 700cc.
[2024-05-20] MEDS: 0.9 % SODIUM CHLORIDE 10 ML VIAL IV (15:40)
[2024-05-20] MEDS: BUPIVACAINE LIPOSOME/PF 266 MG/13.3 ML VIAL INJ (15:40)
[2024-05-20] MEDS: LIDOCAINE HCL 1%-EPINEPHRINE 1:100,000 10 ML MDV 20 ML INJ (15:40)
[2024-05-20] MEDS: BUPIVACAINE HCL 0.25% PF 25 MG/10 ML VIAL 20 ML INJ (15:40)
--- NOTE | 2024-05-20 16:12 | PC.NURSE ---
patient was moving and shivering and baby had started nursing
[2024-05-20] MEDS: OXYTOCIN/0.9 % SODIUM CHLORIDE 20 UNITS/1,000 ML PLAST..BAG 125 UNIT IV (16:29)
--- NOTE | 2024-05-20 17:11 | PM.EN ---
Event Note Event Note: 1st Assist Note: I first assisted Dr Sutton as directed with primary section. I independently closed the SQ layer with 3-0 vicryl without difficulty. I then independently closed the skin incision with 4-0 vicryl on a Ulisses needle without difficulty. Hemostasis noted at completion. Patient tolerated procedure well
[2024-05-20] MEDS: ACETAMINOPHEN 500 MG TABLET 1000 MG PO (19:31)
[2024-05-20] MEDS: KETOROLAC TROMETHAMINE 30 MG/ML VIAL IVP (21:06)
[2024-05-21] MEDS: ACETAMINOPHEN 500 MG TABLET 1000 MG PO ×3 (03:16→19:26)
[2024-05-21] MEDS: KETOROLAC TROMETHAMINE 30 MG/ML VIAL IVP (03:17)
[2024-05-21 03:21] VITALS: BP 108/67; PULSE 78
--- NOTE | 2024-05-21 07:29 | P.OBPN_ITS ---
OB - PN: Subj Subjective Patient comments: no complaints [place] status: doing well Exam Constitutional Vital Signs, click to edit/add: Last Vital Signs Temp 98.2 F 05/20/24 23:45 Pulse 78 05/21/24 03:21 Resp 16 05/20/24 23:45 BP 108/67 05/21/24 03:21 Pulse Ox 98 05/20/24 18:01 O2 Del Method Room Air 05/20/24 23:45 Documenting provider has reviewed patient's vital signs: yes Common normals: no apparent distress, oriented x3 and healthy appearing GI Inspection: normal to inspection Other: Fundus - firm below umbilicus Incision -bandage removed, steri strips applied. healing well Other: minimal bleeding Extremity Common normals: no calf tenderness Urinary Catheter Management Urinary Catheter Management Urethral: Cath placed during this visit: no OB - PN: A/P Assessment and Plan (1) Term : Assessment and Plan: delivered (2) Graves disease: Plan Continue current care Plan - day: 1 Plan: routine postop care Time Spent with Patient Time: Total time spent is greater than 50% in coordination of care (as documented) at patient's floor/unit and/or counseling patient: Total time spent with greater than 50% in coordination of care (as documented) at patient's floor/unit and/or counseling patient: less than 15 minutes
--- NOTE | 2024-05-21 07:33 | PM.OBPN ---
OB - PN: Subj Subjective Interval history: Reaady to go home Exam Constitutional Vital Signs, click to edit/add: Last Vital Signs Temp 98.2 F 05/20/24 23:45 Pulse 78 05/21/24 03:21 Resp 16 05/20/24 23:45 BP 108/67 05/21/24 03:21 Pulse Ox 98 05/20/24 18:01 O2 Del Method Room Air 05/20/24 23:45 Extremity Common normals: no calf tenderness Urinary Catheter Management Urinary Catheter Management Urethral: Cath placed during this visit: no OB - PN: A/P Assessment and Plan (1) Term : (2) Graves disease: Time Spent with Patient Time: Total time spent is greater than 50% in coordination of care (as documented) at patient's floor/unit and/or counseling patient: Total time spent with greater than 50% in coordination of care (as documented) at patient's floor/unit and/or counseling patient: less than 15 minutes
[2024-05-21 08:15] VITALS: PULSE 91; TEMP 36.4
[2024-05-21 08:22] VITALS: BP 123/73; PULSE 91
[2024-05-21] MEDS: RHO(D) IMMUNE GLOBULIN 1,500 UNIT SYRINGE 1500 UNIT IM (09:31)
[2024-05-21] MEDS: IBUPROFEN 400 MG TABLET 800 MG PO ×3 (09:31→21:16)
[2024-05-21] MEDS: DOCUSATE SODIUM 100 MG CAPSULE PO ×2 (09:32→21:16)
--- NOTE | 2024-05-21 12:38 | PC.NURSE ---
showered and ambulated in hallway-steristrips intact, given teaching videos
[2024-05-21] MEDS: ENOXAPARIN SODIUM 40 MG/0.4 ML SYRINGE SUBQ (17:35)
[2024-05-21 17:38] VITALS: BP 117/71; PULSE 81
[2024-05-22 00:40] VITALS: TEMP 36.6
[2024-05-22 00:43] VITALS: BP 135/81; PULSE 83
[2024-05-22] MEDS: IBUPROFEN 400 MG TABLET 800 MG PO ×2 (03:31→10:29)
[2024-05-22] MEDS: ACETAMINOPHEN 500 MG TABLET 1000 MG PO (03:31)
[2024-05-22 08:15] VITALS: BP 125/79; PULSE 74; TEMP 36.6
--- NOTE | 2024-05-22 08:19 | PM.OBPN ---
OB - PN: Subj Subjective Interval history: Reaady to go home Patient comments: no complaints and pain well controlled [place] infant status: doing well Exam Constitutional Vital Signs, click to edit/add: Last Vital Signs Temp 97.9 F 05/22/24 00:40 Pulse 83 05/22/24 00:43 Resp 18 05/22/24 00:40 BP 135/81 05/22/24 00:43 Pulse Ox 98 05/20/24 18:01 O2 Del Method Room Air 05/22/24 00:40 Documenting provider has reviewed patient's vital signs: yes Common normals: no apparent distress Respiratory Common normals: normal respiratory effort and clear to auscultation bilaterally Cardio Common normals: regular rate and regular rhythm GI Common normals: Normal to inspection, nondistended, normoactive bowel sounds present Extremity Common normals: no calf tenderness Urinary Catheter Management Urinary Catheter Management Urethral: Cath placed during this visit: no OB - PN: A/P Assessment and Plan (1) Term : (2) Graves disease: Plan - day: 2 Plan: routine postop care Time Spent with Patient Time: Total time spent is greater than 50% in coordination of care (as documented) at patient's floor/unit and/or counseling patient: Total time spent with greater than 50% in coordination of care (as documented) at patient's floor/unit and/or counseling patient: less than 15 minutes
[2024-05-22 08:20] VITALS: BP 125/79; PULSE 74
== END 2024-05-22 12:30 | disposition home or self-care (01) | DRG 788 ==
PROVIDERS: Obstetrics & Gynecology Gynecology; Admitting Provider Midwife; PCP Family Medicine; Visit Provider Obstetrics & Gynecology
PROC: 10D00Z1 Extraction of Products of Conception, Low, Open Approach (ICD-10-PCS; CPT 59514; principal; 2024-05-20 13:30)
DX: O99.284 Endocrine, nutritional and metabolic diseases complicating childbirth (principal); Z3A.39 39 weeks gestation of pregnancy; Z37.0 Single live birth; E05.00 Thyrotoxicosis with diffuse goiter without thyrotoxic crisis or storm; O61.0 Failed medical induction of labor; O69.81X0 Labor and delivery complicated by cord around neck, without compression, not applicable or unspecified; O26.893 Other specified pregnancy related conditions, third trimester; Z67.41 Type O blood, Rh negative
CPT/HCPCS: 36415; 64488; 80307; 85027; 85461; 86850; 86900; 86901; 88307; 94667; 94668; 96372; 96374; 96375; 96376; J0665; J0690; J1100; J1650; J1885; J2274; J2371; J2405; J2540; J2590; J2765; J2790; Q0162